=== PATIENT | male | born 1985 | race African-American/Black ===

== ENCOUNTER 2017-12-22 12:34 | Emergency (ER) | payer OTHER ==
[~2017-12-22] VITALS: Ht 180.3 cm; Wt 120.2 kg
[2017-12-22 12:39] VITALS: BP 156/95
[2017-12-22] MEDS ORDERED: TESSALON PERLE100 MG PO (13:11)
== END 2017-12-22 13:26 | disposition home or self-care (01) ==
LOC: ER 12:34
DX: J06.9 Acute upper respiratory infection, unspecified (principal); F17.210 Nicotine dependence, cigarettes, uncomplicated

== ENCOUNTER 2018-05-24 00:15 | Emergency (ER) | payer OTHER ==
[~2018-05-24] VITALS: Ht 180.3 cm; Wt 117.9 kg
[~2018-05-24 00:15] MED LIST: TESSALON PERLE100 MG PO
[2018-05-24] MEDS ORDERED: DOXYCYCLINE 10100 MG PO (01:08)
[2018-05-24] MEDS ORDERED: PROAIR HFA8.5 GM INH (01:08)
[2018-05-24] MEDS ORDERED: TESSALON PERLE100 MG PO (01:08)
[2018-05-24 02:31] VITALS: BP 140/82
== END 2018-05-24 02:33 | disposition home or self-care (01) ==
LOC: ER 00:15
DX: R05 Cough (principal); F17.210 Nicotine dependence, cigarettes, uncomplicated

== ENCOUNTER 2020-06-06 17:09 | Emergency (ER) | payer OTHER ==
[~2020-06-06] VITALS: Ht 177.8 cm; Wt 115.7 kg
[~2020-06-06 17:09] MED LIST changes: +DOXYCYCLINE 10100 MG PO; +PROAIR HFA8.5 GM INH
[2020-06-06] MEDS ORDERED: PROAIR HFA8.5 GM INH (18:47)
[2020-06-06] MEDS ORDERED: PROMETH-CODEIN 65 ML PO (18:47)
[2020-06-06 19:08] VITALS: BP 155/97
== END 2020-06-06 19:09 | disposition home or self-care (01) ==
LOC: ER 17:09
DX: R05 Cough (principal); F17.210 Nicotine dependence, cigarettes, uncomplicated; Z20.828 Contact with and (suspected) exposure to other viral communicable diseases

== ENCOUNTER 2021-01-07 15:08 | Emergency (ER) | payer OTHER ==
[~2021-01-07] VITALS: Ht 175.3 cm; Wt 117.9 kg
[~2021-01-07 15:08] MED LIST changes: +PROMETH-CODEIN 65 ML PO
[2021-01-07 15:10] VITALS: BP 147/75
[2021-01-07] MEDS ORDERED: TESSALON PERLE100 MG PO (15:25)
[2021-01-07] MEDS ORDERED: PROAIR HFA8.5 GM INH (15:25)
== END 2021-01-07 15:28 | disposition home or self-care (01) ==
LOC: ER 15:08
DX: J06.9 Acute upper respiratory infection, unspecified (principal); F17.210 Nicotine dependence, cigarettes, uncomplicated